=== PATIENT | female | born 2000 | race Caucasian/White ===

== ENCOUNTER 2019-03-21 11:53 | Emergency (ER) | payer MEDICAID ==
[2019-03-21 13:30] LABS: ADD MAN DIFF? NO
[2019-03-21 13:39] LABS: BASOPHILS % 0.3 % (0.0-2.0); HEMOGLOBIN 13.2 g/dl (12.0-16.0); LYMPHOCYTES # 0.6 10^3/ul (0.8-2.9); LYMPHOCYTES % 6.1 % (15.0-51.0); MEAN CORPUSCULAR HEMOGLOBIN 30.9 pg (29.0-33.0); MEAN CORPUSCULAR HGB CONC 33.8 g/dl (32.0-37.0); MEAN CORPUSCULAR VOLUME 91.3 fl (82.0-101.0); MEAN PLATELET VOLUME 10.3 fl (7.4-10.4); MONOCYTE # 0.3 10^3/ul (0.3-0.9); MONOCYTES % 2.8 % (0.0-11.0); NEUTROPHIL # 9.4 10^3/ul (1.6-7.5); NEUTROPHILS % 90.5 % (39.0-77.0); PLATELET COUNT 250 10^3/UL (140-415); RED BLOOD COUNT 4.27 10^6/ul (4.20-5.40); RED CELL DISTRIBUTION WIDTH 13.2 % (11.5-14.5)
[2019-03-21 13:39] LABS: WHITE BLOOD COUNT 10.4 10^3/ul (4.8-10.8)
[2019-03-21 13:41] LABS: ADD UMIC YES; UR ASCORBIC ACID NEGATIVE (NEGATIVE); UR BACTERIA FEW /HPF (NONE SEEN); UR BILIRUBIN (Dip) NEGATIVE (NEGATIVE); UR BLOOD (Dip) 3+ mg/dL (NEGATIVE); UR CLARITY SLIGHTLY CLOUDY (CLEAR); UR COLOR YELLOW (YELLOW); UR GLUCOSE (Dip) NEGATIVE (NEGATIVE); UR KETONES (Dip) 2+ mg/dL (NEGATIVE); UR LEUKOCYTE ESTERASE (Dip) NEGATIVE Leu/ul (NEGATIVE); UR MUCUS FEW /HPF (NONE SEEN); UR NITRITE (Dip) NEGATIVE (NEGATIVE); UR RBC 157 /HPF (0-5); UR SPECIFIC GRAVITY (Dip) 1.029 (1.003-1.030); UR SQUAMOUS EPITHELIAL CELL FEW /HPF (FEW); UR TOTAL PROTEIN (Dip) 1+ mg/dl (NEGATIVE); UR UROBILINOGEN (Dip) NEGATIVE (NEGATIVE); UR WBC 3 /HPF (0-5)
== END 2019-03-21 14:47 | disposition home or self-care (01) ==
LOC: FTE 11:53
DX: O20.9 Hemorrhage in early pregnancy, unspecified (principal); Z3A.01 Less than 8 weeks gestation of pregnancy
CPT/HCPCS: 36415; 76801; 76817; 81001; 84702; 85025; 86900; 86901; 99284-25

== ENCOUNTER 2019-03-22 17:16 | Inpatient (IN) | payer MEDICAID ==
[2019-03-22 19:36] LABS: ADD MAN DIFF? NO
[2019-03-22 19:38] LABS: WHITE BLOOD COUNT 6.8 10^3/ul (4.8-10.8)
[2019-03-22 19:38] LABS: BASOPHILS % 0.6 % (0.0-2.0); HEMATOCRIT 37.6 % (37.0-47.0); HEMOGLOBIN 12.6 g/dl (12.0-16.0); LYMPHOCYTES # 1.8 10^3/ul (0.8-2.9); LYMPHOCYTES % 27.3 % (15.0-51.0); MEAN CORPUSCULAR HEMOGLOBIN 30.4 pg (29.0-33.0); MEAN CORPUSCULAR HGB CONC 33.5 g/dl (32.0-37.0); MEAN CORPUSCULAR VOLUME 90.8 fl (82.0-101.0); MEAN PLATELET VOLUME 10.1 fl (7.4-10.4); MONOCYTE # 0.5 10^3/ul (0.3-0.9); MONOCYTES % 7.4 % (0.0-11.0); NEUTROPHIL # 4.4 10^3/ul (1.6-7.5); NEUTROPHILS % 64.4 % (39.0-77.0); PLATELET COUNT 232 10^3/UL (140-415); RED BLOOD COUNT 4.14 10^6/ul (4.20-5.40); RED CELL DISTRIBUTION WIDTH 13.2 % (11.5-14.5)
[2019-03-22 19:56] LABS: ANION GAP 12 (5-13); BLOOD UREA NITROGEN 7 mg/dl (7-20); CALCIUM 9.9 mg/dl (8.4-10.2); CARBON DIOXIDE 22 mmol/L (21-31); CHLORIDE 108 mmol/L (97-110); CREATININE 0.58 mg/dl (0.44-1.00); Estimated GFR > 60 mL/min (>60); GLUCOSE 102 mg/dl (70-220); POTASSIUM 4.2 mmol/L (3.5-5.1); SODIUM 142 mmol/L (135-144)
[2019-03-22 20:15] LABS: ADD UMIC YES; UR ASCORBIC ACID NEGATIVE (NEGATIVE); UR BILIRUBIN (Dip) NEGATIVE (NEGATIVE); UR BLOOD (Dip) 1+ mg/dL (NEGATIVE); UR CLARITY CLEAR (CLEAR); UR COLOR YELLOW (YELLOW); UR GLUCOSE (Dip) NEGATIVE (NEGATIVE); UR KETONES (Dip) 1+ mg/dL (NEGATIVE); UR LEUKOCYTE ESTERASE (Dip) NEGATIVE Leu/ul (NEGATIVE); UR MUCUS FEW /HPF (NONE SEEN); UR NITRITE (Dip) NEGATIVE (NEGATIVE); UR RBC 10 /HPF (0-5); UR SPECIFIC GRAVITY (Dip) 1.027 (1.003-1.030); UR SQUAMOUS EPITHELIAL CELL FEW /HPF (FEW); UR TOTAL PROTEIN (Dip) NEGATIVE (NEGATIVE); UR UROBILINOGEN (Dip) 1+ mg/dL (NEGATIVE); UR WBC 2 /HPF (0-5)
[2019-03-22 21:59] LABS: ALANINE AMINOTRANSFERASE 26 IU/L (13-69); ALBUMIN 4.6 g/dl (3.3-4.9); ALBUMIN/GLOBULIN RATIO 1.39; ALKALINE PHOSPHATASE 80 IU/L (42-121); ANION GAP 12 (5-13); ASPARTATE AMINO TRANSFERASE 23 IU/L (15-46); BILIRUBIN,INDIRECT 0.2 mg/dl (0-1.1); BILIRUBIN,TOTAL 0.2 mg/dl (0.2-1.3); BLOOD UREA NITROGEN 7 mg/dl (7-20); CALCIUM 10.1 mg/dl (8.4-10.2); CARBON DIOXIDE 20 mmol/L (21-31); CHLORIDE 109 mmol/L (97-110); CREATININE 0.56 mg/dl (0.44-1.00); Estimated GFR > 60 mL/min (>60); GLUCOSE 103 mg/dl (70-220); LIPASE 46 U/L (23-300); POTASSIUM 4.3 mmol/L (3.5-5.1); SODIUM 141 mmol/L (135-144); TOTAL PROTEIN 7.9 g/dl (6.1-8.1)
[2019-03-22] MEDS: ONDANSETRON 4 MG INJ IV (22:47)
[2019-03-22] MEDS: morphine 4 MG/ML VIAL IV (22:47)
[2019-03-23] MEDS: SOD CHLORIDE 0.9% 1,000 ML IV (00:43)
[2019-03-23] MEDS: LACTATED RINGER'S 1,000 ML IV ×5 (02:23→22:29)
[2019-03-23] MEDS ORDERED: morphine 2 MG INJ IV (02:30)
[2019-03-23] MEDS: morphine 4 MG/ML VIAL IV ×3 (08:24→20:28)
[2019-03-23] MEDS ORDERED: ALBUTEROL 0.083% (NEB) 2.5 MG/3 ML AMP HHN (12:00)
[2019-03-23] MEDS ORDERED: METOCLOPRAMIDE 10 MG INJ IV (12:00)
[2019-03-23] MEDS ORDERED: FENTAnyl 50 MCG/ML VIAL IV ×3 (12:00)
[2019-03-23] MEDS ORDERED: HYDROmorphONE 1 MG/5 ML IV SYRINGE IV ×2 (12:00)
[2019-03-23] MEDS ORDERED: FENTAnyl 50 MCG/ML VIAL ×2 (12:28→13:27)
[2019-03-23] MEDS ORDERED: ROPIVACAINE 0.5 % 30 ML VIAL (12:29)
[2019-03-23] MEDS ORDERED: HYDROCODONE/APAP (5/325) TAB PO (12:30)
[2019-03-23] MEDS ORDERED: DIPHENHYDRAMINE 50 MG INJ IV (12:30)
[2019-03-23] MEDS ORDERED: PROPOFOL 20 ML (13:29)
[2019-03-23] MEDS ORDERED: CEFAZOLIN 1 GM INJ (13:29)
[2019-03-23] MEDS ORDERED: GLYCOPYRROLATE 0.4 MG INJ (13:29)
[2019-03-23] MEDS ORDERED: LIDOCAINE 100 MG SYRINGE (13:29)
[2019-03-23] MEDS ORDERED: ROCURONIUM 50 MG INJ (13:29)
[2019-03-23] MEDS ORDERED: SUCCINYLCHOLINE CHLORIDE 100 MG/5 ML SYG IV (13:29)
[2019-03-23] MEDS ORDERED: NEOSTIGMINE 3 MG/3 ML SYRINGE (13:29)
[2019-03-23] MEDS: HYDROmorphONE 1 MG/5 ML IV SYRINGE IV (13:47)
[2019-03-23] MEDS: ONDANSETRON 4 MG INJ IV ×2 (14:35→17:05)
[2019-03-23] MEDS: METOCLOPRAMIDE 10 MG INJ IV (15:18)
[2019-03-23] MEDS: KETOROLAC 30 MG INJ IV (15:19)
[2019-03-23] MEDS: FAMOTIDINE 20 MG INJ IV (20:28)
[2019-03-24] MEDS: LACTATED RINGER'S 1,000 ML IV ×3 (00:30→08:30)
[2019-03-24] MEDS: KETOROLAC 30 MG INJ IV (04:12)
[2019-03-24] MEDS: ONDANSETRON 4 MG INJ IV (04:12)
[2019-03-24 05:18] LABS: ADD MAN DIFF? NO
[2019-03-24 05:20] LABS: WHITE BLOOD COUNT 6.5 10^3/ul (4.8-10.8)
[2019-03-24 05:20] LABS: BASOPHILS % 0.5 % (0.0-2.0); HEMOGLOBIN 10.6 g/dl (12.0-16.0); LYMPHOCYTES # 1.3 10^3/ul (0.8-2.9); LYMPHOCYTES % 19.2 % (15.0-51.0); MEAN CORPUSCULAR HEMOGLOBIN 31.1 pg (29.0-33.0); MEAN CORPUSCULAR HGB CONC 34.2 g/dl (32.0-37.0); MEAN CORPUSCULAR VOLUME 90.9 fl (82.0-101.0); MEAN PLATELET VOLUME 10.5 fl (7.4-10.4); MONOCYTE # 0.7 10^3/ul (0.3-0.9); NEUTROPHIL # 4.6 10^3/ul (1.6-7.5); PLATELET COUNT 181 10^3/UL (140-415); RED BLOOD COUNT 3.41 10^6/ul (4.20-5.40); RED CELL DISTRIBUTION WIDTH 13.1 % (11.5-14.5)
[2019-03-24] MEDS ORDERED: BISACODYL 10 MG SUPP PR (08:30)
[2019-03-24] MEDS: FAMOTIDINE 20 MG INJ IV (09:19)
[2019-03-24] MEDS: MINERAL OIL 30ML CUP PO (09:20)
[2019-03-24] MEDS: MAGNESIUM HYDROXIDE 30ML CUP PO (09:20)
== END 2019-03-24 13:30 | disposition home or self-care (01) | DRG 819 ==
LOC: MS1 03-23 01:14 → E/R 17:16 → MS1 23:57
PROC: 10T20ZZ Resection of Products of Conception, Ectopic, Open Approach (ICD-10-PCS; principal; 2019-03-23 12:00)
PROC: 0UB50ZZ Excision of Right Fallopian Tube, Open Approach (ICD-10-PCS; 2019-03-23 12:00)
DX: O00.101 Right tubal pregnancy without intrauterine pregnancy (principal)
CPT/HCPCS: 36415; 76801; 76817; 80048; 80053; 81001; 81025; 83690; 84702; 85025; 87086; 87110; 87591; 88305; 99285-25